=== PATIENT | male | born 1960 | race Caucasian/White ===

== ENCOUNTER 2017-12-22 07:37 | Observation (INO) | payer MEDICAID ==
[2017-12-22] MEDS ORDERED: Albuterol 0.083% Inhal Sol (2.5 mg/3 mL) UD INH STA (08:01)
[2017-12-22] MEDS ORDERED: Albuterol-Ipratrop 3 mg / 0.5 (3 ml) UD IH STA (08:01)
[2017-12-22 08:23] LABS: BASO % 0.3 % (0.0-2.0); EOS # 0.7 K/uL (0.0-0.7); HEMOGLOBIN 12.3 g/dL (12.0-18.0); LYMPH # 1.4 K/uL (1.0-4.3); LYMPH % 11.1 % (20.0-40.0); MEAN CELL VOLUME 60.4 fL (80.0-94.0); MEAN CORPUSCULAR HEMOGLOBIN 19.8 pg (27.0-31.0); MEAN CORPUSCULAR HGB CONC 32.8 g/dL (33.0-37.0); MEAN PLATELET VOLUME 7.6 fL (7.2-11.7); MONO # 1.3 K/uL (0.0-0.8); MONO % 10.3 % (0.0-10.0); NEUT # 8.8 K/uL (1.8-7.0); NEUT % 72.3 % (50.0-75.0); NRBC % 0.1 % (0.0-2.0); RBC 6.19 Mil/uL (4.40-5.90); RED CELL DISTRIBUTION WIDTH 16.6 % (11.5-14.5); WHITE BLOOD COUNT 12.2 K/uL (4.8-10.8)
[2017-12-22 08:28] VITALS: RESP 20
--- NOTE | 2017-12-22 08:40 | C.PDOC ---
History Of Present Illness Patient is a 56 y/o male who presents to the ED with a complaint of intermittent SOB that worsened last night and left chest pain, prompting visit. Patient also notes 1 week history of atraumatic right shoulder pain; admits to pain on movement. Denies any fever or history of asthma. No other physical complaints at this time. Chief Complaint (Nursing): Shortness Of Breath History Per: Patient History/Exam Limitations: no limitations Onset/Duration Of Symptoms: Hrs (short of breath worsened since last night), Days (1 week of right shoulder pain), Intermittent Episodes (short of breath) Current Symptoms Are (Timing): Still Present Associated Symptoms: denies: Fever, Chest Pain Past Medical History Reviewed: Historical Data, Nursing Documentation, Vital Signs Vital Signs: Last Vital Signs Temp 98.1 F 12/22/17 15:10 Pulse 85 12/22/17 15:10 Resp 20 12/22/17 15:10 BP 126/83 12/22/17 15:10 Pulse Ox 96 12/22/17 15:10 - Medical History PMH: Seizures (Hx of "Mini-Seizures") Denies: Asthma Surgical History: No Surg Hx Family History: States: No Known Family Hx - Social History Hx Tobacco Use: Yes Hx Alcohol Use: No Hx Substance Use: No - Immunization History Hx Tetanus Toxoid Vaccination: No Hx Influenza Vaccination: No Hx Pneumococcal Vaccination: No Review Of Systems Constitutional: Negative for: Fever Cardiovascular: Negative for: Chest Pain Respiratory: Positive for: Shortness of Breath Musculoskeletal: Positive for: Shoulder Pain (right) Physical Exam - Physical Exam Appears: In Acute Distress, Other (uncomfortable) Skin: Normal Color, Warm, Dry Head: Atraumatic, Normacephalic Eye(s): bilateral: Normal Inspection Oral Mucosa: Moist Chest: Symmetrical Cardiovascular: Rhythm Regular, No Murmur Respiratory: No Rales, No Rhonchi, Wheezing Gastrointestinal/Abdominal: Soft, No Tenderness Extremity: No Tenderness, No Pedal Edema, No Swelling Neurological/Psych: Oriented x3, Normal Speech, Normal Cognition ED Course And Treatment - Laboratory Results Result Diagrams: 12/22/17 08:14 12/22/17 08:14 ECG: Interpreted By Me, Viewed By Me ECG Rhythm: Sinus Rhythm, Nonspecific Changes Rate From EC O2 Sat by Pulse Oximetry: 99 (room air) Pulse Ox Interpretation: Normal - Other Rad right shoulder X-Ray: Interpreted by Me, Viewed By Me Interpretation: Right shoulder three views. History: Pain. Comparison: None available. Findings: Mild narrowing of the right glenohumeral and acromioclavicular joint spaces. No evidence for acute displaced fracture or dislocation. Rounded radiopaque density projects over the proximal humerus which may represent a bone island. Impression: Degenerative changes. If pain persists, consider MRI. CXR X-Ray: Interpreted by Me, Viewed By Me Interpretation: Chest x-ray single frontal view. History: Shortness of breath. Comparison: 05/19/2013. Findings: Biapical pleural thickening with upper lobe granulomatous changes. Mild venous congestion. Mild patchy increased markings in the right infrahilar region. Nodular density at the left lung base likely represents vessel on end. Tortuous ectatic aorta. Top normal heart size. Degenerative changes in the spine. Impression: Biapical pleural thickening with upper lobe granulomatous changes. Mild venous congestion. Mild patchy increased markings in the right infrahilar region. Nodular density at the left lung base likely represents vessel on end. Tortuous ectatic aorta. Top normal heart size. Progress Note: Blood work, d-dimer, EKG, right shoulder XR, UA, and CXR ordered. Nasal cannula, nebulizer treatment, and albuterol administered. Case was d/w , who covers for patient's PMD . patient was accepted to tele for observation. - Physician Consult Information Time Consulting Physician Contacted: 10:50 Physician Contacted: Sonali Nunez Outcome Of Conversation: Accepted to Telemetry for observation. Disposition - Disposition Disposition: HOSPITALIZED Disposition Time: 11:01 Condition: FAIR - Clinical Impression Clinical Impression: Chest pain, SOB (shortness of breath) - Scribe Statement The provider has reviewed the documentation as recorded by the Scribe Caity Brady All medical record entries made by the Scribe were at my direction and personally dictated by me. I have reviewed the chart and agree that the record accurately reflects my personal performance of the history, physical exam, medical decision making, and the department course for this patient. I have also personally directed, reviewed, and agree with the discharge instructions and disposition. Decision To Admit - Pt Status Changed To: Hospital Disposition Of: Observation - . Bed Request Type: Telemetry Admitting Physician: Sonali Nunez Patient Diagnosis: Chest pain, SOB (shortness of breath)
[2017-12-22 08:41] LABS: ALB/GLOB RATIO 1.2 (1.0-2.1); ALBUMIN 4.1 g/dL (3.5-5.0); ALT/SGPT 28 U/L (21-72); AST/SGOT 28 U/L (17-59); BLOOD UREA NITROGEN 9 mg/dL (9-20); CALCIUM 9.3 mg/dl (8.6-10.4); GFR AFRICAN-AMERICAN > 60; GFR NON-AFRICAN AMERICAN > 60; LIPASE 86 U/L (23-300)
[2017-12-22 08:52] LABS: CK-MB 1.97 ng/mL (0.0-3.38)
[2017-12-22] MEDS ORDERED: Albuterol-Ipratrop 3 mg / 0.5 (3 ml) UD ONE (08:54)
[2017-12-22 08:58] LABS: INR 1.1; PARTIAL THROMBOPLASTIN TIME 31 SECONDS (21-34)
[2017-12-22 08:59] LABS: D DIMER < 200 ng/mlDDU (0-243)
--- NOTE | 2017-12-22 09:10 | RAD ---
Right shoulder three views History: Pain. Comparison: None available. Findings: Mild narrowing of the right glenohumeral and acromioclavicular joint spaces. No evidence for acute displaced fracture or dislocation. Rounded radiopaque density projects over the proximal humerus which may represent a bone island. Impression: Degenerative changes. If pain persists, consider MRI.
--- NOTE | 2017-12-22 09:12 | RAD ---
Chest x-ray single frontal view History: Shortness of breath. Comparison: 05/19/2013 Findings: Biapical pleural thickening with upper lobe granulomatous changes. Mild venous congestion. Mild patchy increased markings in the right infrahilar region. Nodular density at the left lung base likely represents vessel on end. Tortuous ectatic aorta. Top normal heart size. Degenerative changes in the spine. Impression: Biapical pleural thickening with upper lobe granulomatous changes. Mild venous congestion. Mild patchy increased markings in the right infrahilar region. Nodular density at the left lung base likely represents vessel on end. Tortuous ectatic aorta. Top normal heart size.
[2017-12-22 10:28] LABS: URINE BILIRUBIN NEGATIVE (NEGATIVE); URINE BLOOD NEGATIVE (NEGATIVE); URINE CLARITY Clear (Clear); URINE COLOR Straw (YELLOW); URINE GLUCOSE (UA) NORMAL (Normal); URINE LEUKOCYTE ESTERASE NEG Leu/uL (Negative); URINE PROTEIN NEGATIVE (NEGATIVE); URINE UROBILINOGEN NORMAL mg/dL (0.2-1.0)
[2017-12-22] MEDS: Tramadol 25 mg PO SCH ×2 (14:22→18:14)
[2017-12-22] MEDS ORDERED: Morphine 4 MG/ML VIAL IVP PRN (15:19)
[2017-12-22] MEDS ORDERED: Morphine 4 MG/ML VIAL IVP STA (15:20)
--- NOTE | 2017-12-22 16:36 | CP.PCM.HP ---
Past Patient History - Infectious Disease Hx of Infectious Diseases: None - Past Social History Smoking Status: Heavy Smoker > 10 Cigarettes Daily - PULMONARY Hx Asthma: No - NEUROLOGICAL Hx Seizures: Yes (Hx of "Mini-Seizures") - PSYCHIATRIC Hx Substance Use: No - ANESTHESIA Hx Anesthesia: No Meds Allergies/Adverse Reactions: Allergies Allergy/AdvReac Type Severity Reaction Status Date / Time No Known Allergies Allergy Verified 12/22/17 07:47 Physical Exam - Constitutional Appears: Well - Head Exam Head Exam: ATRAUMATIC, NORMAL INSPECTION, NORMOCEPHALIC - Eye Exam Eye Exam: EOMI, Normal appearance, PERRL Pupil Exam: NORMAL ACCOMODATION, PERRL - ENT Exam ENT Exam: Mucous Membranes Moist, Normal Exam - Neck Exam Neck exam: Positive for: Normal Inspection - Respiratory Exam Respiratory Exam: Decreased Breath Sounds - Cardiovascular Exam Cardiovascular Exam: REGULAR RHYTHM, +S1, +S2 - GI/Abdominal Exam GI & Abdominal Exam: Diminished Bowel Sounds, Soft - Rectal Exam Rectal Exam: Deferred Results - Vital Signs Recent Vital Signs: Last Vital Signs Temp 98.1 F 12/22/17 15:10 Pulse 85 12/22/17 15:10 Resp 20 12/22/17 15:10 BP 126/83 12/22/17 15:10 Pulse Ox 96 12/22/17 15:10 - Labs Result Diagrams: 12/22/17 08:14 12/22/17 08:14 Labs: Laboratory Results - last 24 hr 12/22/17 12/22/17 12/22/17 08:01 08:14 08:14 WBC 12.2 H D RBC 6.19 H Hgb 12.3 Hct 37.4 MCV 60.4 L D MCH 19.8 L MCHC 32.8 L RDW 16.6 H Plt Count 345 MPV 7.6 Neut % (Auto) 72.3 Lymph % (Auto) 11.1 L [place] % (Auto) 10.3 H Eos % (Auto) 6.0 H Baso % (Auto) 0.3 Neut # (Auto) 8.8 H Lymph # (Auto) 1.4 Gates # (Auto) 1.3 H Eos # (Auto) 0.7 Baso # (Auto) 0.0 Differential Comment PT 12.0 INR 1.1 APTT 31 D-Dimer, Quantitative < 200 Sodium Potassium Chloride Carbon Dioxide Anion Gap BUN Creatinine Est GFR ( Amer) Est GFR (Non-Af Amer) Random Glucose Calcium Magnesium Total Bilirubin AST ALT Alkaline Phosphatase Total Creatine Kinase CK-MB (Mass) Troponin I NT-Pro-B Natriuret Pep Total Protein Albumin Globulin Albumin/Globulin Ratio Lipase Urine Color Straw Urine Clarity Clear Urine pH 6.0 Ur Specific [place] 1.003 Urine Protein Negative Urine Glucose (UA) Normal Urine Ketones Negative Urine Blood Negative Urine Nitrate Negative Urine Bilirubin Negative Urine Urobilinogen Normal Ur Leukocyte Esterase Neg Urine RBC (Auto) < 1 12/22/17 08:14 WBC RBC Hgb Hct MCV MCH MCHC RDW Plt Count MPV Neut % (Auto) Lymph % (Auto) [place] % (Auto) Eos % (Auto) Baso % (Auto) Neut # (Auto) Lymph # (Auto) [place] # (Auto) Eos # (Auto) Baso # (Auto) Differential Comment PT INR APTT D-Dimer, Quantitative Sodium 135 Potassium 4.3 Chloride 99 Carbon Dioxide 26 Anion Gap 14 BUN 9 Creatinine 0.8 Est GFR ( Amer) > 60 Est GFR (Non-Af Amer) > 60 Random Glucose 112 H Calcium 9.3 Magnesium 1.9 Total Bilirubin 0.7 AST 28 ALT 28 Alkaline Phosphatase 89 Total Creatine Kinase 228 H CK-MB (Mass) 1.97 Troponin I < 0.0120 NT-Pro-B Natriuret Pep 77.0 Total Protein 7.6 Albumin 4.1 Globulin 3.4 Albumin/Globulin Ratio 1.2 Lipase 86 Urine Color Urine Clarity Urine pH Ur Specific [place] Urine Protein Urine Glucose (UA) Urine Ketones Urine Blood Urine Nitrate Urine Bilirubin Urine Urobilinogen Ur Leukocyte Esterase Urine RBC (Auto)
--- NOTE | 2017-12-22 17:15 | MRI ---
PROCEDURE: HISTORY: pain COMPARISON: None TECHNIQUE: FINDINGS: There is tendinosis of the supraspinatus tendon without evidence of rotator cuff tear. 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 There is no subacromial/ subdeltoid bursitis. The biceps tendon is intact and screw. There is no evidence of labral tear. There is an 8 millimeter calcification noted along the superior margin of the superior labrum with associated reactive edema deep to the rotator cuff musculature extending medially and posteriorly. IMPRESSION: 8 millimeter calcification noted along the superior margin of the superior labrum with associated reactive edema deep to the rotator cuff musculature extending medially and posteriorly.
[2017-12-22] MEDS: guaiFENesin DM 200 mg-20 mg/10 ml UD PO PRN (18:16)
[2017-12-23 08:06] VITALS: BP 119/79; PULSE 81; TEMP 98; O2SAT 95
[2017-12-23] MEDS ORDERED: Enoxaparin 40 mg Syringe SC SCH (10:00)
[2017-12-23] MEDS: Tramadol 25 mg PO SCH (10:25)
--- NOTE | 2017-12-23 10:27 | CP.PCM.PN ---
Subjective - Date & Time of Evaluation Date of Evaluation: 12/23/17 Time of Evaluation: 09:40 - Subjective Subjective: clinically same Objective - Vital Signs/Intake and Output Vital Signs (last 24 hours): Temp Pulse Resp BP Pulse Ox 98.0 F 81 20 119/79 95 12/23/17 07:40 12/23/17 07:40 12/23/17 07:40 12/23/17 07:40 12/23/17 07:40 Intake and Output: 12/23/17 12/23/17 06:59 18:59 Intake Total 500 Balance 500 - Medications Medications: Current Medications Aspirin (Aspirin Chewable) 81 mg PO DAILY [facility] Clopidogrel Bisulfate (Plavix) 75 mg PO DAILY [facility] Enoxaparin Sodium (Lovenox) 40 mg SC DAILY [facility] Guaifenesin/Dextromethorphan (Robitussin Dm) 10 ml PO Q4H PRN PRN Reason: Cough and congestion Last Admin: 12/22/17 18:16 Dose: 10 ml Lamotrigine (Lamictal) 200 mg PO DAILY [facility] Morphine Sulfate (Morphine) 2 mg IVP Q6H PRN PRN Reason: Pain, moderate (4-7) Pneumococcal Polyvalent Vaccine (Pneumovax 23 Vaccine) 0.5 ml IM .ONCE ONE Stop: 12/24/17 10:01 Tramadol HCl (Ultram) 25 mg PO TID [facility] Last Admin: 12/22/17 18:14 Dose: 25 mg - Labs Labs: 12/22/17 08:14 12/22/17 08:14 PT 12.0 SECONDS (9.7-12.2) 12/22/17 08:14 INR 1.1 12/22/17 08:14 APTT 31 SECONDS (21-34) 12/22/17 08:14 - Constitutional Appears: Well - Head Exam Head Exam: ATRAUMATIC, NORMAL INSPECTION, NORMOCEPHALIC - Eye Exam Eye Exam: EOMI, Normal appearance, PERRL Pupil Exam: NORMAL ACCOMODATION, PERRL - ENT Exam ENT Exam: Mucous Membranes Moist, Normal Exam - Neck Exam Neck Exam: Full ROM, Normal Inspection. absent: Lymphadenopathy - Respiratory Exam Respiratory Exam: Decreased Breath Sounds - Cardiovascular Exam Cardiovascular Exam: REGULAR RHYTHM, +S1, +S2 - GI/Abdominal Exam GI & Abdominal Exam: Soft, Diminished Bowel Sounds - Rectal Exam Rectal Exam: Deferred
[2017-12-23] MEDS: guaiFENesin DM 200 mg-20 mg/10 ml UD PO PRN (12:00)
--- NOTE | 2017-12-23 15:00 | CP.PCM.PN ---
Subjective - Date & Time of Evaluation Date of Evaluation: 12/23/17 Time of Evaluation: 11:00 - Subjective Subjective: House resident paged by nursing because patient wanted to sign out AMA. He stated "I have not seen a doctor since I have been here". He stated that he would like to leave and that he would follow up with his primary care physician. His risks were explained to him about leaving AMA. He accepted these risks and signed the AMA form. Patient was alert, awake, and oriented. Jacquie Handy DO PGY2 Objective - Vital Signs/Intake and Output Vital Signs (last 24 hours): Temp Pulse Resp BP Pulse Ox 98.0 F 81 20 119/79 95 12/23/17 07:40 12/23/17 07:40 12/23/17 07:40 12/23/17 07:40 12/23/17 07:40 Intake and Output: 12/23/17 12/23/17 06:59 18:59 Intake Total 500 Balance 500 - Labs Labs: 12/22/17 08:14 12/22/17 08:14 PT 12.0 SECONDS (9.7-12.2) 12/22/17 08:14 INR 1.1 12/22/17 08:14 APTT 31 SECONDS (21-34) 12/22/17 08:14
[2017-12-24] MEDS ORDERED: Pneumococcal 23-Valent Vaccine IM ONE (10:00)
== END 2017-12-23 12:15 | disposition left against medical advice (07) ==
LOC: C.ER 07:37 → C.5S 11:00
PROVIDERS: ADMIT Internal Medicine Nephrology; ATTEND Internal Medicine Nephrology
DX: R06.02 Shortness of breath (principal); R07.9 Chest pain, unspecified; F17.200 Nicotine dependence, unspecified, uncomplicated
CPT/HCPCS: 71045; 73030; 73221; 80053; 81001; 82550; 82553; 83690; 83735; 83880; 84484; 85025; 85378; 85610; 85730; 94640; 96372; 96374; 99285; G0378; J1885; J2270